=== PATIENT | female | born 1975 | race Caucasian/White ===

== ENCOUNTER 2022-12-14 18:07 | Emergency (ER) | payer MEDICAID, OTHER ==
[~2022-12-14] VITALS: Ht 162.6 cm; Wt 68.9 kg
[~2022-12-14 18:07] MED LIST: IBUP-974 PO; PRED20TA5 PO
[2022-12-14 19:15] VITALS: BP 139/95
[2022-12-14] MEDS ORDERED: PRED10TA5 PO (20:18)
[2022-12-14] MEDS ORDERED: DIPH25TA39 PO (20:18)
[2022-12-14 20:24] VITALS: BP 139/95
--- NOTE | 2022-12-14 20:24 | NUR ---
Patient discharged with v/s stable. Written and verbal after care instructions given and explained. Patient verbalized understanding. Ambulatory with steady gait. New rx benadryl and prednisone. All questions addressed prior to discharge. Advised to follow up with PMD.
--- NOTE | 2022-12-14 20:24 | NUR ---
pt seen and evaluated by COLLETTE
== END 2022-12-14 20:24 | disposition home or self-care (01) ==
LOC: MED 18:07
DX: L50.0 Allergic urticaria (principal); Z79.899 Other long term (current) drug therapy; Z79.1 Long term (current) use of non-steroidal anti-inflammatories (NSAID); Z91.018 Allergy to other foods
CPT/HCPCS: 99283